=== PATIENT | female | born 1980 | race Caucasian/White ===

== ENCOUNTER 2024-06-09 09:36 | Emergency (ER) | payer OTHER, SELFPAY ==
--- NOTE | 2024-06-09 09:38 | ED_ITS ---
HPI - General Adult General Chief complaint: Skin/Abscess/Foreign Body Stated complaint: Skin Sore/Right Arm Time Seen by Provider: 06/09/24 09:47 Source: patient, RN notes reviewed and old records reviewed Mode of arrival: ambulatory Limitations: no limitations History of Present Illness HPI narrative: 43-year-old presents to the [facility] with concerns that she was bit by spider. Patient states that she was cleaning her basement over the weekend, had a small pimple area. Tried popping it did Area is now red, raised, purulent center Onset (ago): day(s) (6) Related Data Home Medications ?Medication ?Instructions ?Recorded ?Confirmed ?Last Taken ?Type pravastatin 40 mg tablet mg 06/09/24 Unknown History propranolol 80 mg capsule,24 mg PO 06/09/24 Unknown History hr,extended release trazodone 100 mg tablet mg 06/09/24 Unknown History venlafaxine 150 mg mg PO 06/09/24 Unknown History capsule,extended release 24 hr Allergies Allergy/AdvReac Type Severity Reaction Status Date / Time No Known Allergies Allergy Verified 06/09/24 09:47 Review of Systems Review of Systems: All systems reviewed & are unremarkable except as noted in HPI and below Constitutional: Constitutional: Reports no additional constitutional complaints ENT: Reports system reviewed and no additional complaints, except as docu mented Cardiovascular: Cardiovascular: Reports no additional cardiovascular complaints, Denies chest pain and Denies dyspnea Respiratory: Respiratory: Reports no additional respiratory complaints, Denies chest congestion, Denies cough and Denies dyspnea Musculoskeletal: Musculoskeletal: Reports no additional musculoskeletal complaints Integumentary/Breasts: Skin/Breast: Reports as per HPI and Reports lesions PMFSH Past Medical History Medical History (Updated 06/09/24 @ 10:01 by Elissa Tirado, LILY) History of high cholesterol Comments At the time of my signature, I reviewed and agree with the nursing past medical, surgical, social, and family history. There is no relevant family history pertinent to the patient complaint. Exam Const: General: cooperative, healthy appearing, comfortable, no acute distress, well developed, alert and well nourished Nutritional Appearance: well nourished Orientation/consciousness: patient oriented x3 Limitations: no limitations HENMT: Head: normal to inspection Eyes: General: appearance normal, both eyes and all related structures Alignment and Position: alignment normal Neck: Neck: normal visual inspection, full ROM, no lymphadenopathy and no meningeal signs Chest: Chest palpation & inspection: normal inspection of the chest Resp: Effort & Inspection: normal respiratory effort and able to speak in complete sentences Cardio: Rate: regular rate Skin: General skin exam: normal color and no rashes or lesions noted Other: 1 x 1-1/2 red, raised area, pustule in c enter, warm to touch Neuro: General: patient oriented x3, gait normal, moves all extremities and no meningeal signs Cognition (Neuro): normal cognition Speech: normal speech Gait exam (Neuro): Normal gait present Extrem: General: normal to inspection, full ROM, capillary refill normal and normal gait Psych: Appearance: grossly normal and well kempt Mental Status: mental status grossly normal Speech and movement: Normal speech and movement present and Clear speech present Affect: normal affect Attitude: cooperative Course Course Level of Care: Express Care Visit Vital Signs Vital signs: Vital Signs Temperature 98 F 06/09/24 09:43 Pulse Rate 78 06/09/24 09:43 Respiratory Rate 16 06/09/24 09:43 Blood Pressure 129/92 H 06/09/24 09:43 Pulse Oximetry 96 06/09/24 09:43 Oxygen Delivery Room Air 06/09/24 09:43 Temperature 98 F 06/09/24 09:43 Pulse Rate 78 06/09/24 09:43 Respiratory Rate 16 06/09/24 09:43 Blood Pressure 129/92 H 06/09/24 09:43 Pulse Oximetry 96 06/09/24 09:43 Oxygen Delivery Room Air 06/09/24 09:43 Reviewed Medical Decision Making MDM Narrative Medical decision making narrative: Patient sitting comfortably in exam room. Nontoxic, vitals stable. Patient in no acute distress Patient presents for concerns for an insect bite, infection. Area was cleaned, pustule drained. Patient placed on antibiotics, culture sent Patient appropriate for outpatient treatment and follow-up Discharge instructions reviewed with patient, as well as provided in writing per nursing staff. The instructions also include specific and strict return/GO TO THE ER as well as f/u information. All questions have been answered, and the patient deny any further questions with discharge and discharge plan. Some parts of this dictation were generated by voice recognition software and may contain typographical and/or grammatical inaccuracies. Differential Diagnosis Differential Diagnosis: Cellulitis, abscess Medical Records Medical records reviewed: Yes I reviewed the external patient's medical records. Vital Signs Vital Signs: Vital Signs Temperature 98 F 06/09/24 09:43 Pulse Rate 78 06/09/24 09:43 Respiratory Rate 16 06/09/24 09:43 Blood Pressure 129/92 H 06/09/24 09:43 Pulse Oximetry 96 06/09/24 09:43 Oxygen Delivery Room Air 06/09/24 09:43 Temperature 98 F 06/09/24 09:43 Pulse Rate 78 06/09/24 09:43 Respiratory Rate 16 06/09/24 09:43 Blood Pressure 129/92 H 06/09/24 09:43 Pulse Oximetry 96 06/09/24 09:43 Oxygen Delivery Room Air 06/09/24 09:43 Reviewed Lab Data Lab results reviewed: Yes I reviewed the patient's lab results. Labs: Reviewed Critical Care Time Critical Care Time Critical Care Time: No Discharge Plan Discharge Clinical Impression: Cellulitis Patient Disposition: Home Condition: Stable Instructions: Antibiotic Form, Cellulitis (ED), Insect Bite or Sting (ED) Additional Instructions: Keep area clean and dry. Wash with warm soapy water, pat dry. Take antibiotic as prescribed Keep it covered when not at home. When at home try leaving open to air Follow-up with primary care provider For new or worsening symptoms go directly to the emergency room Patient Language: Ivorian Prescriptions: New sulfamethoxazole-trimethoprim [Bactrim DS] 800-160 mg tablet 1 tablet PO Q12H Qty: 14 0RF No Action pravastatin 40 mg tablet venlafaxine 150 mg capsule,extended release 24hr PO trazodone 100 mg tablet propranolol 80 mg capsule,extended release 24 hr PO Follow-up/Referrals: Johan,Ashish White MD [Primary Care Provider] - 2 Weeks ([facility] follow- up) Stand Alone Forms: Work/School Release IP Time of Disposition: 10:01
[2024-06-09 09:43] VITALS: BP 129/92; PULSE 78; RESP 16; TEMP 36.6; O2SAT 96
--- OUTSIDE RECORDS SUMMARY | 2024-06-09 09:58 | XMS_ITS | Encounter Summary ---
Author Organization [facility] Address [address] [place] [address] Phone Care Team Providers Care Senior Pastor Name Role Phone Ashish Prado MD Primary Care Provider [phone] Azalea Azevedo PLASTIC EXTRUDING MACHINE OPERATOR Unavailable Unavailab Navi Lehman MD Unavailable [phone] Reason for Visit * Reason Comments Medication Refill Encounter Details Date Type Department Care Team (Late st Contact Info) Description 07/01/2022 [facility]ill [facility] - [facility] - [place] [address] [facility] [phone] Ashish Prado MD [address] [place] [address] Medication Refill Social History Tobacco Use Types Packs/Day Years Used Date Smoking Tobacco: Every Day Cigarettes Smokeless Tobacco: Never Alcohol Use Standard Drinks/Week Comments Never 0 (1 standard drink = 0.6 oz pur e alcohol) PHQ-2 Answer Date Recorded Total Score - Questions 1-9 8 09/2021 Sexually Active Control Partners Comments Not Currently Comments No Sex and Gender Information Value Date Recorded Sex Assigned at Not on file Legal Sex Female 9:38 AM CDT Gender Identity Not on file Sexual Orientation Not on file 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 Requested Prescriptions Pending Prescriptions Disp Refills traZODone (DESYREL) 100 MG Tablet [Pharmacy Med Name: traZODone HCl 100 MG Oral Tablet] 45 Tablet 0 Sig: TAKE 1 & 1/2 (ONE & ONE-HALF) TABLETS BY MOUTH AT BEDTIME Serotonin Modulators (6 Month Refill Only) Protocol Failed - 07/01/2022 10:33 AM Failed - Has an encounter in the past 6 months with a depression or anxiety visit diagnosis Passed - No test in the past 12 months or most recent test was negative Passed - No active on record Passed - Visit with relevant provider in past 6 months or upcoming 90 days Recent Visits Date Type Provider Dept 02/11/22 Office Visit Ashish Prado MD [facility] [place] 01/06/22 [facility] [place] Showing recent visits within past 182 days and meeting all other requirements Future Appointments Date Type Provider Dept 07/07/22 Appointment Ashish Prado MD [facility] [place] Showing future appointments within next 90 days and meeting all other requirements Passed - No PRN Use for Trazodone Passed - Patient has established therapy with Serotonin Modulators for at least 6 months documented in this encounter Plan of Treatment Upcoming Encounters Date Type Department Care Team (Late st Contact Info) Description 07/25/2024 8:15 AM CDT Office Visit [facility] - Internal Medicine - [place] [address] [place] [phone] Ashish Prado MD [address] [place] [address] documented as of this encounter Visit Diagnoses Not on filedocumented in this encounter Additional Health Concerns Assessment Noted Time PHQ-9 Depression Total Score: 8 01/07/20 22 2:00 PM DECISION SUPPORT MANAGER documented as of this encounter Care Teams Senior Pastor Relationship Specialty Start Date End Date Ashish Prado MD [address] [place] [address] PCP - General Internal Medicine 11/29/20 Azalea Azevedo LSW [place] [employer] Supervisor Data Management Manager 10/22/23 11/12/23 Navi Olvera MD [address] [place] [address] Consulting Physician Obstetrics & Gynecology 01/21/24 documented as of this encounter
--- OUTSIDE RECORDS SUMMARY | 2024-06-09 09:58 | XMS_ITS | Encounter Summary ---
Author Organization [facility] Address [address] [facility] [place] [address] Phone Care Team Providers Care Sling Operator Name Role Phone Ashish Prado MD Primary Care Provider [phone] Navi Olvera MD Unavailable [phone] Encounter Details Date Type Department Care Team (Late st Contact Info) Description 04/18/2024 Results Follow-Up [facility] - Obstetrics & Gynecology [facility] [address] [place] [address] Navi Olvera MD [address] [place] [phone] Social History Tobacco Use Types Packs/Day Years Used Date Smoking Tobacco: Former Cigarettes Q uit: 01/16/2024 Passive Smoke Exposure: Current Smokeless Tobacco: Never Alcohol Use Standard Drinks/Week Comments Never 0 (1 standard drink = 0.6 oz pur e alcohol) [facility] Utilities Answer Date Recorded In the past 12 months has e electric, gas, oil, or water company threatened to shut off services in your home? Patient declined 01/25/2024 Social Connection and Isolation Panel [NHANES] A nswer Date Recorded In a typical week, how many times do you talk on the phone with family, friends, or neighbors? Patient declined 01/25/2024 How often do you get togethe r with friends or relatives? Patient declined 01/25/2024 How often do you attend restorationism or rastafari serv ices? Patient declined 01/25/2024 Do you belong to any clubs o r organizations such as restorationism groups, unions, fraternal or athletic groups, or school groups? Patient declined 01/25/2024 How often do you attend meet ings of the clubs or organizations you belong to? Patient declined 01/25/2024 Are you , , di vorced, , never , or living with a partner? Patient declined 01/25/2024 AUDIT-C Answer Date Recorded Q1: How often do you have a drink containing alc ohol? Patient declined 01/25/2024 Q2: How many drinks containi ng alcohol do you have on a typical day when you are drinking? Patient declined 01/25/2024 Q3: How often do you have si x or more drinks on one occasion? Patient declined 01/25/2024 Overall Financial Resource Strain (CARDIA) Answe r Date Recorded How hard is it for you to pa y for the very basics like food, housing, medical care, and heating? Hard 11/12/2023 PHQ-2 Answer Date Recorded Total Score - Questions 1-9 6 10/30 [facility] - Occupational Stress Questionnaire Answer Date Recorded Do you feel stress - tense, restless, nervous, or anxious, or unable to sleep at night because your mind is troubled all the time - these days? Patient declined 01/25/2024 Exercise Vital Sign Answer Date Recorde d On average, how many days pe r week do you engage in moderate to strenuous exercise (like a brisk walk)? Patient declined On average, how many minutes do you engage in exercise at this level? Patient declined 01/25/2024 Hunger Vital Sign Answer Date Recorded Within the past 12 months, y ou worried that your food would run out before you got the money to buy more. Patient declined Within the past 12 months, t he food you bought just didn't last and you didn't have money to get more. Patient declined PRAPARE - Transportation Answer Date Re corded In the past 12 months, has l ack of transportation kept you from medical appointments or from getting medications? Patient declined 01/25/2024 In the past 12 months, has l ack of transportation kept you from meetings, work, or from getting things needed for daily living? Patient declined 01/25/2024 Housing Stability Vital Sign Answer Eusebio e Recorded In the last 12 months, was t here a time when you were not able to pay the mortgage or rent on time? No 01/25/2024 In the past 12 months, how m any times have you moved where you were living? 0 01/25/2024 At any time in the past 12 m ont, were you homeless or living in a [place] (including now)? No 01/25/2024 Education Answer Date Recorded What is the highest level of school you have completed or the highest degree you have received? 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 The procedure went well. Thank you, MANUEL ER MOVER documented in this encounter Plan of Treatment Upcoming Encounters Date Type Department Care Team (Late st Contact Info) Description 07/25/2024 8:15 AM CDT [facility] - [place] [address] [place] [address] Ashish Prado MD [address] [place] [address] documented as of this encounter Visit Diagnoses Not on filedocumented in this encounter Additional Health Concerns Assessment Noted Time PHQ-9 Depression Total Score: 6 11/12/19 24 2:25 PM CDT documented as of this encounter Care Teams Sling Operator Relationship Specialty Start Date End Date Ashish Prado MD [address] [place] [address] PCP - General Internal Medicine 11/29/20 Navi Olvera MD [address] [place] [address] Consulting Physician Obstetrics & Gynecology 01/21/24 documented as of this encounter
--- OUTSIDE RECORDS SUMMARY | 2024-06-09 09:58 | XMS_ITS | Encounter Summary ---
Author Organization [facility] Address [address] [place] [address] Phone Care Team Providers Care General Education Instructor Name Role Phone Ashish Prado MD Primary Care Provider [phone] Azalea Azevedo EVENT DECORATOR AND DESIGNER Unavailable Unavailab Navi Lehman MD Unavailable [phone] Reason for Visit * Reason Comments Medication Refill Encounter Details Date Type Department Care Team (Late st Contact Info) Description 08/20/2023 Refill [facility] - [place] [address] [place] [address] Ashish Prado MD [address] [place] [address] Medication Refill Social History Tobacco Use Types Packs/Day Years Used Date Smoking Tobacco: Every Day Cigarettes Passive Smoke Exposure: Current Smokeless Tobacco: Never Alcohol Use Standard Drinks/Week Comments Never 0 (1 standard drink = 0.6 oz pur e alcohol) PHQ-2 Answer Date Recorded Total Score - Questions 1-9 0 1110/2022 Education Answer Date Recorded What is the [...] 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 Requested Prescriptions Pending Prescriptions Disp Refills venlafaxine (EFFEXOR-XR) 75 MG CAPSULE SR 24 HR [Pharmacy Med Name: Venlafaxine HCl ER 75 MG Oral Capsule Extended Release 24 Hour] 90 Capsule 0 Sig: Take 1 capsule by mouth once daily SNRI (6 Month Refill Only) Protocol Failed - 08/20/2023 6:15 AM Failed - Visit with relevant provider in past 6 months or upcoming 90 days Recent Visits No visits were found meeting these conditions. Showing recent visits within past 182 days and meeting all other requirements Future Appointments No visits were found meeting these conditions. Showing future appointments within next 90 days and meeting all other requirements Failed - Has an encounter in the past 6 months with a depression or anxiety visit diagnosis Passed - No test in the past 12 months or most recent test was negative Passed - No active on record Passed - Patient has established therapy with Serotonin-Norepinephrine Reuptake Inhibitors for at least 6 months documented in this encounter Plan of Treatment Upcoming Encounters Date Type Department Care Team (Late st Contact Info) Description 07/25/2024 8:15 AM CDT Office Visit [facility] - Internal Medicine - [place] [address] [place] [phone] Ashish Prado MD [address] [place] [address] documented as of this encounter Visit Diagnoses Not on filedocumented in this encounter Additional Health Concerns Assessment Noted Time PHQ-9 Depression Total Score: 0 01/08/20 23 7:59 AM BALLET PROFESSOR documented as of this encounter Care Teams General Education Instructor Relationship Specialty Start Date End Date Ashish Prado MD [address] [place] [address] PCP - General Internal Medicine 11/29/20 Azalea Azevedo, [place] Instrument Mechanic Ship Erector 10/22/23 11/12/23 Navi Olvera MD [address] [place] [address] Consulting Physician Obstetrics & Gynecology 01/21/24 documented as of this encounter
--- OUTSIDE RECORDS SUMMARY | 2024-06-09 09:58 | XMS_ITS | Clinical Summary ---
Author Organization [facility] [place] Address [address] [place] [address] Phone Care Team Providers Care Photograph Editor Name Role Phone Ashish Prado MD Primary Care Provider [phone] Navi Olvera MD Unavailable [phone] Allergies No known active allergies Medications albuterol 108 (90 Base) MCG/ACT Aerosol Solution take 2 Puffs by inhalation every 4 hours as needed for Wheezing. 18 g 1 3 Active etodolac (LODINE) 400 MG Tablet Take 1 Tablet by mouth daily as needed for Mild or more severe pain. 30 Tablet 3 4 Active pravastatin (PRAVACHOL) 40 MG Tablet Take 1 Tablet by mouth daily. 90 Tablet 1 4 Active Additional Information Patient taking differently:40 mg OralEVERY EVENING, Reported on 04/12/2024 propranolol (INDERAL LA) 80 MG CAPSULE SR 24 HR Take 1 Capsule by mouth daily. 90 Capsule 1 4 Active Additional Information Patient taking differently:80 mg Oral DAILY,Indications: patient reported that she uses for anxiety, Reported on 04/12/2024 traZODone (DESYREL) 100 MG Tablet Take 2 Tablets by mouth nightly. 180 Tablet 1 4 Active venlafaxine (EFFEXOR-XR) 150 MG CAPSULE SR 24 HR Take 1 Capsule by mouth daily. 90 Capsule 1 4 Active varenicline (Chantix Continuing Month Rommel) 1 MG Tablet Take 1 Tablet by mouth 2 times daily. 60 Tablet 1 4 Active Additional Information Patient not taking.Reported on 04/10/2024 ibuprofen (MOTRIN) 600 MG Tablet Take 1 Tablet by mouth every 6 hours as needed for Mild or more severe pain. 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 12/09/2020 Dysthymic disorder 12/09/2020 Primary insomnia 12/09/2020 Encounters Date Type Department Care Team Description 05/30/2024 1:30 PM CDT Office Visit [facility] Obstetrics & Gynecology [facility] [address] [place] [address] Navi Olvera MD Dysfunctional uterine bleeding (Primary Dx) Discharge Disposition: Discharged to home or Selfcare 05/30/2024 Travel 05/04/2024 Telephone [facility] PHYSICIAN [facility] UROLOGY #[address] [place] [address] Navi Olvera MD 04/18/2024 Results Follow-Up [facility] Obstetrics & [facility] [address] [place] [address] Navi Olvera MD 04/12/2024 9:47 AM VOLUNTEER ASSISTANT Anesthesia Event [facility] Periop [address] [place] [address] Stefan Lee MD Tucker, Marissa E, Student 04/12/2024 9:10 AM VOLUNTEER ASSISTANT - 04/12/2024 10:40 AM VOLUNTEER ASSISTANT Surgery [facility] [address] [address] [place] [address] Navi Olvera MD NOVASURE ENDOMETRIAL ABLATION 04/12/2024 6:47 AM VOLUNTEER ASSISTANT - 04/12/2024 12:35 PM VOLUNTEER ASSISTANT Hospital Encounter [facility] Preop/Pacu II [address] [place] [phone] Navi Olvera MD Discharge Disposition: Discharged to home or Selfcare 04/10/2024 Travel 04/07/2024 Telephone [facility]YSIC[facility] UROLOGY #[address] [place] [address] Navi Olvera MD from Last 3 Months Immunizations Immunization Administration Dates Next Due Influenza Vaccine greater than 3 yrs 01/04/2024, 12/24/2022 Influenza Vaccine, Quadrivalent, PF 01/06/2022,1 Family History Medical History Relation Name Comments Diabetes Father Hypertension Father Kidney Disease Father Heart Disease Maternal Grandfather Heart Disease Maternal Grandmother Hypertension Mother No Known Problems Paternal Grandfather Diabetes Paternal Grandmother Heart Attack Paternal Grandmother Heart Disease Paternal Grandmother Hypertension Paternal Grandmother Bipolar Disorder Sister Relation Name Status Comments Father Maternal Grandfather Maternal Grandmother Mother Alive Paternal Grandfather Paternal Grandmother Sister Alive Social History Tobacco Use Types Packs/Day Years Used Date Smoking Tobacco: Former Cigarettes Q uit: 01/16/2024 Passive Smoke Exposure: Current Smokeless Tobacco: Never Alcohol Use Standard Drinks/Week Comments Never 0 (1 standard drink = 0.6 oz pur e alcohol) [facility] Utilities Answer Date Recorded In the past 12 months has [employer] electric, gas, oil, or water [employer] threatened to shut off services in your home? Patient declined 01/25/2024 Social Connection and Isolation Panel [NHANES] A nswer Date Recorded In a typical week, how many times do you talk on the phone with family, friends, or neighbors? Patient declined 01/25/2024 How often do you get togethe r with friends or relatives? Patient declined 01/25/2024 How often do you attend yarsanism or hoahaoism serv ices? Patient declined 01/25/2024 Do you belong to any clubs o r organizations such as yarsanism groups, unions, fraternal or athletic groups, or [...] Total Score - Questions 1-9 6 10/30 [facility] - Occupational Stress Questionnaire Answer Date Recorded [...] any time in the past 12 m [facility], were you homeless or living in a halfway (including now)? 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 Not on file Not on file Last Filed Vital Signs Vital Sign Reading Time Taken Comments Blood Pressure 141/99 05/30/2024 1:33 PM CDT Pulse 67 05/30/2024 1:33 PM CDT Temperature 36.1 C (97 F) 04/12/2024 11:07 AM VOLUNTEER ASSISTANT Respiratory Rate 18 05/30/2024 1:33 PM CDT Oxygen Saturation 96% 05/30/2024 1:33 PM CDT Inhaled Oxygen Concentration - - Weight 115.2 kg (254 lb) 05/30/2024 1:33 PM CDT Height 167.6 cm (5' 6 ) 05/30/2024 1:33 PM CDT Body Mass Index 41 05/30/2024 1:33 PM CDT Plan of Treatment Upcoming Encounters Date Type Department Care Team (Late st Contact Info) Description 07/25/2024 8:15 AM CDT Office Visit [facility] [place] [address] [place] [address] Ashish Prado MD [address] [place] [address] Health Maintenance Due Date Last Done Comments Hepatitis C Virus (HCV) Screening 1980 TdaP Immunization 1980 Hepatitis B Immunization (1 of 3 - 19+ 3-dose series) 06/27/1998 SARS-COV-2 Immunization ( season) 2023 03/09/2021, 07/08/2020 Mammogram 02/01/2025 02/02/2024 Pneumococcal Immunization Combined (1 of 2 - PCV) 04/29/2026 Postponed from 06/27/1998 (Lower Priority for Now) Pap Smear 12/30/2026 12/31/2023 Cervical Cancer Screening (CCS) 12/30/2028 HPV/Cotest 12/30/2028 12/31/2023 Respiratory Syncytial Virus (RSV) Immunization (Adult) (1 - 1-dose 75+ series) 06/27/2054 Influenza Immunization Completed , 12/27/2023, 12/24/2022, Additional history exists Discussion re Starting/Frequency of Mammograms Completed 02/02/2024 Meningococcal Immunization (ACWY) Aged Out No longer eligible based on patient's age to complete this topic Rotavirus Immunization Aged Out No lo nger eligible based on patient's age to complete this topic Procedures Procedure Name Priority Date/Time Associated Diagnosis Comments PATHOLOGY SURGICAL Routine 04/12/2024 10 :11 AM VOLUNTEER ASSISTANT LMA Routine 04/12/2024 10:04 AM VOLUNTEER ASSISTANT HYSTEROSCOPY,W/ENDO METRIAL ABLATION 04/12/2024 9:28 AM VOLUNTEER ASSISTANT DYSFUNCTIONAL UTERINE BLEEDING, MENORRHAGIA WITH IRREGULAR BLEEDING Special Needs Hx: HTN UCG on admission 5' 6 240# HYSTEROSCOPY,W/ENDO METRIAL ABLATION 04/12/2024 9:28 AM VOLUNTEER ASSISTANT DYSFUNCTIONAL UTERINE BLEEDING, MENORRHAGIA WITH IRREGULAR BLEEDING Special Needs Hx: HTN UCG on admission 5' 6 240# ENDOMETRIAL ABLATION, THERMAL 04/12/2024 9:28 AM VOLUNTEER ASSISTANT DYSFUNCTIONAL UTERINE BLEEDING, MENORRHAGIA WITH IRREGULAR BLEEDING Special Needs Hx: HTN UCG on admission 5' 6 240# POCT URINE HCG () Routine 04/12/2024 7:00 AM VOLUNTEER ASSISTANT DARRYL SCREENING BILATERAL DIGITAL W CAD W LOPEZ Routine 02/02/2024 6:56 AM VOLUNTEER ASSISTANT Encounter for screening mammogram for malignant neoplasm of breast HUMAN PAPILLOMA VIRUS (HPV) Routine 12/31/2023 8:20 AM CDT Screening for malignant neoplasm of cervix PATHOLOGY CYTOLOGY BOWLING BALL FINISHER Routine 12/31/2023 8:20 AM CDT Screening for malignant neoplasm of cervix from Last 3 Months or Most Recently Relevant to Health Maintenance Results * Pathology Surgical (04/12/2024 10:11 AM VOLUNTEER ASSISTANT) Case Report Surgical Pathology Report Case: [id number] Authorizing Provider: Navi Olvera MD Collected: 04/12/2024 10:11 AM Ordering Location: [facility] Received: 04/12/2024 11:14 AM [facility] Main OR Pathologist: Ame Resendiz MD PhD Specimen: Uterus, endometrial curettings 04/13/2024 1:13 PM VOLUNTEER ASSISTANT [facility] FINAL DIAGNOSIS Uterus, endometrial curettings, biopsy: - Benign proliferative endometrium with bleeding - Negative for dysplasia or malignancy 04/13/2024 1:13 PM [facility] at 1313 VOLUNTEER ASSISTANT Comment Benign cervical tissue is also present in the specimen. 04/13/2024 1:13 PM VOLUNTEER ASSISTANT [facility] Pre-Operative Diagnosis DYSFUNCTIONAL UTERINE BLEEDING, MENORRHAGIA WITH IRREGULAR BLEEDING 04/13/2024 1:13 PM VOLUNTEER ASSISTANT [facility] Gross Description A. endometrial curettings The specimen presents in a single formalin container for gross and microscopic examination, labeled with the patient's name, Raegan Ornelas, and designated as endometrial curettings. The specimen consists of a single Telfa pad together with multiple fragments of soft, dark red tissue measuring 3.5 x 2 x 0.4 cm in aggregate. It will be submitted in its entirety in cassettes A1 and A2. Total time of fixation is 11 hours, 35 minutes. KS/sb 04/13/2024 1:13 PM [facility] Microscopic Description Microscopic examination was performed which supports the final diagnosis. All control tissues stained appropriately. 04/13/2024 1:13 PM [facility] Tissue UTERINE STRUCTURE / Unknown 04/12/2024 10:11 AM VOLUNTEER ASSISTANT 04/12/2024 11:14 AM VOLUNTEER ASSISTANT Navi Olvera MD PATHOLOGY/CYTOLOGY ORDERABLES Final Result [facility] [address] [place] [address] * LMA (04/12/2024 10:04 AM VOLUNTEER ASSISTANT) Narrative Stefan Lee MD - 04/12/2024 10:04 AM VOLUNTEER ASSISTANT Stefan Lee MD 04/12/2024 10:04 AM LMA Staffing Performed: resident/GLASS INSERTER Other anesthesia staff: Rae Andrea Student Performed by: Stefan Lee MD Authorized by: Stefan Lee MD Airway Details Overall Difficulty: Easy Preoxygenated: Yes Ease of Mask Ventilation: Not attempted LMA Type: Disposable LMA Size: 4 Adequate seal established: Yes LMA placement confirmed by: bilateral breath sounds, CO2 detection Atraumatic LMA Placement Stefan Lee MD ANESTHESIA ORDERABLES Final R esult * POCT Urine HCG () (04/12/2024 7:00 AM VOLUNTEER ASSISTANT) POC URINE Negative POC URINE CONTROL Wood Type Finisher Pass Urine 04/12/2024 7:00 AM VOLUNTEER ASSISTANT Navi Olvera MD POINT OF CARE TESTING (MANUAL) Final Result * DARRYL SCREENING BILATERAL DIGITAL W CAD W LOPEZ (02/02/2024 6:56 AM VOLUNTEER ASSISTANT) Anatomical Region Laterality Modality breast Bilateral Mammography 02/02/2024 7:57 AM VOLUNTEER ASSISTANT Narrative 02/03/2024 10:14 AM VOLUNTEER ASSISTANT - DARRYL SCREENING BILATERAL DIGITAL W CAD W LOPEZ BILATERAL DIGITAL SCREENING MAMMOGRAM 3D/2D WITH CAD WITH MEDIOLATERAL OBLIQUE CRANIOCAUDAL: 02/02/2024 The study was acquired using digital technology and interpreted from soft copy. Current study was also evaluated with ICAD version 7.2. 2D digital mammographic views, as well as 3D digital tomosynthesis were performed in the CC and MLO projections. CLINICAL: Baseline screening. Patient has no complaints. No personal history of cancer. No family history of breast cancer. COMPARISONS: No prior exams were available for comparison. BREAST TISSUE:There are scattered areas of fibroglandular density. FINDINGS: No significant masses, calcifications, or other findings are seen in either breast. IMPRESSION: NEGATIVE There is no mammographic evidence of malignancy. A 1 year screening mammogram is recommended. A letter will be sent to the patient with these results. The patient will be entered into a reminder system with a target due date of 1 year for her next screening exam. Electronically signed by: Honorio Ortega M.D. /penrad:02/02/2024 22:27:25 Brick Burner Head(s): ANGIE Aceves)(Brooks), [facility] letter sent: Normal Exam Reading location: [facility] Mammogram BI-RADS: Category 1: Negative Procedure Note Honorio Ortega MD - 02/03/2024 - DARRYL SCREENING BILATERAL DIGITAL W CAD W LOPEZ BILATERAL DIGITAL SCREENING MAMMOGRAM 3D/2D WITH CAD WITH MEDIOLATERAL OBLIQUE CRANIOCAUDAL: 02/02/2024 The study was acquired using digital technology and interpreted from soft copy. Current study was also evaluated with ICAD version 7.2. 2D digital mammographic views, as well as 3D digital tomosynthesis were performed in the CC and MLO projections. CLINICAL: Baseline screening. Patient has no complaints. No personal history of cancer. No family history of breast cancer. COMPARISONS: No prior exams were available for comparison. BREAST TISSUE:There are scattered areas of fibroglandular density. FINDINGS: No significant masses, calcifications, or other findings are seen in either breast. IMPRESSION: NEGATIVE There is no mammographic evidence of malignancy. A 1 year screening mammogram is recommended. A letter will be sent to the patient with these results. The patient will be entered into a reminder system with a target due date of 1 year for her next screening exam. Electronically signed by: Honorio Ortega M.D. ll/penrad:02/02/2024 22:27:25 Brick Burner Head(s): ANGIE Aceves)(Brooks), [facility] letter sent: Normal Exam Reading location: [place] Mammogram BI-RADS: Category 1: Negative us Larisa Sweeney APRN, CNP IM MAMMO ORDERABLES Fin al Result * PATHOLOGY CYTOLOGY BOWLING BALL FINISHER (12/31/2023 8:20 AM CDT) SPECIMEN ADEQUACY A scant cellular component is noted. Endocervical/transf ormation zone component is absent. 01/05/2024 2:43 PM VOLUNTEER ASSISTANT [facility] DESCRIPTIVE DIAGNOSIS NEGATIVE FOR INTRAEPITHELIAL LESIONS OR MALIGNANCY. 01/05/2024 2:43 PM VOLUNTEER ASSISTANT [facility] at 1443 VOLUNTEER ASSISTANT Automated Examination Analysis of this sample has been assisted by an automated imaging and review system ([employer] System, [employer], [place], [place]). This case is further evaluated and finalized by a surveillance system monitor and/or pathologist. 01/05/2024 2:43 PM VOLUNTEER ASSISTANT [facility] Disclaimer The PAP smear is a screening test designed to detect cancerous or precancerous cells of the uterine cervix. It is one of the best means available for detection of cervical cancer but still carries an inherent false-negative rate. The consequences of a false-negative PAP result can be minimized by adhering to current screening guidelines. The following are general guidelines recommended by the ACS, ASCP, ASCCP, and ACOG: PAP testing is recommended every three years for women 21-29, Co-Testing , a PAP test in conjunction with an HPV (Human Papillomavirus) test for women ages 30-65, and no PAP or HPV testing for women under the age of 21 or older than 65 unless clinically indicated. 01/05/2024 2:43 PM VOLUNTEER ASSISTANT [facility] Case Report Gynecologic Cytology Report Case: [id number] Authorizing Provider: Larisa Sweeney APRN, CNP Collected: 12/31/2023 08:20 AM Ordering Location: [facility] - Received: 12/31/2023 08:20 AM Internal Medicine - [place] First Screen: Marjorie Moralez Specimen: TP Screen, Cervix/Endocervix 01/05/2024 2:43 PM VOLUNTEER ASSISTANT [facility] Other CERVIX UTERI STRUCTURE / Unknown Non-Phlebotomy Collection / Unknown 12/31/2023 8:20 AM CDT 12/31/2023 8:20 AM CDT Larisa Brooks Sweeney APRN, REFRIGERATING ENGINEER PATHOLOGY/CYTOLOGY ORDER NIESHA Final Result [facility] [address] [place] [address], * HUMAN PAPILLOMA VIRUS (HPV) (12/31/2023 8:20 AM CDT) HPV TYPE 16 NEGATIVE NEGATIVE 01/03/2024 8:46 PM VOLUNTEER ASSISTANT [facility] Comment: A negative high-risk HPV result does not exclude the possibility of future cytologic HSIL or underlying CIN2-3 or cancer. The presence of PCR inhibitors may cause false negative or invalid results. If concentrations of whole blood in the sample exceed 10% (dark red or brown coloration) in PreservCyt solution, there is a likelihood of obtaining a false-negative result. HPV TYPE 18 NEGATIVE NEGATIVE 01/03/2024 8:46 PM VOLUNTEER ASSISTANT [facility] Comment: A negative high-risk HPV result does not exclude the possibility of future cytologic HSIL or underlying CIN2-3 or cancer. The presence of PCR inhibitors may cause false negative or invalid results. If concentrations of whole blood in the sample exceed 10% (dark red or brown coloration) in PreservCyt solution, there is a likelihood of obtaining a false-negative result. HPV OTHER HIGH RISK TYPES, PCR NEGATIVE NEGATIVE 01/03/2024 8:46 PM VOLUNTEER ASSISTANT [facility] Comment: The following Other High Risk types were not detected: 31, 33, 35, 39, 45, 51, 52, 56, 58, 59, 66, and 68. A negative high-risk HPV result does not exclude the possibility of future cytologic HSIL or underlying CIN2-3 or cancer. The presence of PCR inhibitors may cause false negative or invalid results. If concentrations of whole blood in the sample exceed 10% (dark red or brown coloration) in PreservCyt solution, there is a likelihood of obtaining a false-negative result. HPV ORDER BE USED FOR SCREENING OR DIAGNOSTIC SCREENING 01/03/2024 8:46 PM VOLUNTEER ASSISTANT [facility] Other Non-Phlebotomy Collection / Unknown 12/31/2023 8:20 AM CDT 12/31/2023 8:20 AM CDT Narrative [facility] - 01/03/2024 8:46 PM VOLUNTEER ASSISTANT This test was performed using MICHELLE 5800 Real Time PCR. us Larisa Sweeney APRN, REFRIGERATING ENGINEER LAB SEND OUTS Final Re sult [facility] [address] [place] [address], [facility] [address] [place] [address] from Last 3 Months or Most Recently Relevant to Health Maintenance Insurance [facility] Care Teams Photograph Editor Relationship Specialty Start Date End Date Ashish Prado MD [address] [place] [address] PCP - General Internal Medicine 11/29/20 Navi Olvera MD [address] [place] [address] Consulting Physician Obstetrics & Gynecology 01/21/24
--- OUTSIDE RECORDS SUMMARY | 2024-06-09 09:59 | XMS_ITS | Encounter Summary ---
Author Organization [facility] Address [address] [place] [address] Phone Care Team Providers Care Consumer Lending Manager Name Role Phone Ashish Prado MD Primary Care Provider [phone] Azalea Azevedo SUPERVISOR CORE SHOP Unavailable Unavailab Navi Lehman MD Unavailable [phone] Reason for Visit * Reason Onset Date Comments Referral 12/08/2022 Encounter Details Date Type Department Care Team (Late st Contact Info) Description 12/08/2022 Telephone [facility] [address] [place], [place] [id number] Ashish Prado MD [address] [place] [address] Referral Social History Tobacco Use Types Packs/Day Years Used Date Smoking Tobacco: Every Day Cigarettes Passive Smoke Exposure: Current Smokeless Tobacco: Never Alcohol Use Standard Drinks/Week Comments Never 0 (1 standard drink = 0.6 oz pur e alcohol) PHQ-2 Answer Date Recorded Total Score - Questions 1-9 8 09/2021 Education Answer Date Recorded What is the [...] 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 BACKGROUND: Referral unable to be processed. ASSESSMENT: Request for provider review due to the following reason(s): Patient refusal or unable to contact patient. RECOMMENDATION: Based on the above information the provider has the following option(s): Cancel existing referral. MILY RODRIGUEZ [facility] - Referrals opt 7 documented in this encounter Plan of Treatment Upcoming Encounters Date Type Department Care Team (Late st Contact Info) Description 07/25/2024 8:15 AM CDT Office Visit [facility] - Internal Medicine [place] [address] [place] [address] Ashish Prado MD [address] [place] [address] documented as of this encounter Visit Diagnoses Not on filedocumented in this encounter Additional Health Concerns Assessment Noted Time PHQ-9 Depression Total Score: 8 01/07/20 22 2:00 PM FILL PLANT OPERATOR documented as of this encounter Care Teams Consumer Lending Manager Relationship Specialty Start Date End Date Ashish Prado MD [address] [place] [address] PCP - General Internal Medicine 11/29/20 Azalea Azevedo, SUPERVISOR [facility] Compo Conveyor Operator Ironer Sock 10/22/23 11/12/23 Navi Olvera MD [address] [place] [address] Consulting Physician Obstetrics & Gynecology 01/21/24 documented as of this encounter
--- OUTSIDE RECORDS SUMMARY | 2024-06-09 09:59 | XMS_ITS | Encounter Summary ---
Author Organization [facility] Address [address] [place] [address] Phone Care Team Providers Care Mobile Heavy Equipment Mechanic Name Role Phone Ashish Prado MD Primary Care Provider [phone] Azalea Azevedo PERSONAL CHEF Unavailable Unavailab Navi Lehman MD Unavailable [phone] Reason for Visit * Reason Comments Medication Refill Encounter Details Date Type Department Care Team (Late st Contact Info) Description 11/20/2022 Refill [facility] - [facility] - [place] [address] [place] [address] Ashish Prado MD [address] [place] [address] Medication Refill Social History Tobacco Use Types [...] 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 on file Not on file documented as of this encounter Miscellaneous Notes * Telephone Encounter - Elissa Brasher RN - 11/20/2022 10:40 AM CDT Medication failed the protocol, [...] (6 Month Refill Only) Protocol Failed - 11/20/2022 5:54 AM Failed - Patient has established therapy with Serotonin-Norepinephrine Reuptake Inhibitors for at least 6 months Passed - No test in the past 12 months or most recent test was negative Passed - No active on record Passed - Visit with relevant provider in past 6 months or upcoming 90 days Recent Visits Date Type Provider Dept 10/05/22 Office Visit Ashish Prado MD [facility] 07/07/22 [facility] [place] Showing recent visits within past 182 days and meeting all other requirements Future Appointments Date Type Provider Dept 01/07/23 Appointment Ashish Prado MD [facility] Showing future appointments within next 90 days and meeting all other requirements Passed - Has an encounter in the past 6 months with a depression or anxiety visit diagnosis documented in this encounter Plan of Treatment Upcoming Encounters Date Type Department Care Team (Late st Contact Info) Description 07/25/2024 8:15 AM CDT Office Visit [facility] - Internal Medicine - [place] [address] [place] [address] Ashish Prado MD [address] [place] [address] documented as of this encounter Visit Diagnoses Not on filedocumented in this encounter Additional Health Concerns Assessment Noted Time PHQ-9 Depression Total Score: 8 01/07/20 22 2:00 PM HOTEL OR MOTEL CLEANING SUPERVISOR documented as of this encounter Care Teams Mobile Heavy Equipment Mechanic Relationship Specialty Start Date End Date Ashish Prado MD [address] [place] [address] PCP - General Internal Medicine 11/29/20 Azalea Azevedo, PERSONAL CHEF [place] Security Professional Out And Out Cigar Maker Hand 10/22/23 11/12/23 Navi Olvera MD [address] [place] [address] Consulting Physician Obstetrics & Gynecology 01/21/24 documented as of this encounter
--- OUTSIDE RECORDS SUMMARY | 2024-06-09 09:59 | XMS_ITS | Encounter Summary ---
Author Organization [facility] Address [address] [place] [place] [address] Phone Care Team Providers Care Butadiene Convertor Operator Name Role Phone Ashish Prado MD Primary Care Provider [phone] Azalea Azevedo DIRECTOR MARKET INTELLIGENCE Unavailable Unavailab Navi Lehman MD Unavailable [phone] Reason for Visit * Reason Comments Medication Refill Encounter Details Date Type Department Care Team (Late st Contact Info) Description 08/05/2022 Refill [facility] - [facility] - [place] [address] [place] [id number] Ashish Prado MD [address] [place] [address] Medication Refill Social History Tobacco Use Types [...] 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 Compressor Technician Steam Setter 10/22/23 11/12/23 Navi Olvera MD [address] [place] [address] Consulting Physician Obstetrics & Gynecology 01/21/24 documented as of this encounter
== END 2024-06-09 10:09 | disposition home or self-care (01) ==
LOC: EXPBETH 09:41
PROVIDERS: Emergency Provider Nurse Practitioner; PCP Internal Medicine
DX: L03.113 Cellulitis of right upper limb (principal); E78.00 Pure hypercholesterolemia, unspecified
CPT/HCPCS: 87070; 87075; 87181; 87205; 99203; G0463